=== PATIENT | female | born 1985 | race Native Hawaiian/Other Pacific Islander ===

== ENCOUNTER 2016-02-26 19:56 | Emergency (ER) | payer OTHER ==
[~2016-02-26] VITALS: Ht 165.1 cm; Wt 81.6 kg
[2016-02-26 22:11] VITALS: BP 109/72; TEMP 98
== END 2016-02-26 22:17 | disposition home or self-care (01) ==
LOC: ED 19:56
DX: O23.11 Infections of bladder in pregnancy, first trimester (principal); Z3A.09 9 weeks gestation of pregnancy
CPT/HCPCS: 80307; 81000; 81025; 84702; 87077; 87086; 87088; 87186; 99283; G0479